=== PATIENT | female | born 1960 | race African-American/Black ===

== ENCOUNTER 2020-09-11 10:45 | Day surgery (SDC) | payer OTHER ==
[2020-09-05 14:45] VITALS: BMI 40.3
[2020-09-11] MEDS ORDERED: PROPOFOL 20 ML ONE ×7 (11:37→12:22)
[2020-09-11] MEDS ORDERED: LIDOCAINE HCL/PF 2% SDV 5ML VIAL ONE (11:38)
[2020-09-11 12:55] VITALS: TEMP 98.2
[2020-09-11 13:29] VITALS: BP 146/74; PULSE 78
== END 2020-09-11 13:30 | disposition home or self-care (01) ==
LOC: FASU-ENDO 10:45
PROVIDERS: ATTEND Internal Medicine Gastroenterology
PROC: 0DBH8ZX Excision of Cecum, Via Natural or Artificial Opening Endoscopic, Diagnostic (ICD-10-PCS; principal; 2020-09-11 11:56)
DX: Z12.11 Encounter for screening for malignant neoplasm of colon (principal); D12.0 Benign neoplasm of cecum; K64.1 Second degree hemorrhoids; K63.5 Polyp of colon
CPT/HCPCS: 88305-TC

== ENCOUNTER 2020-10-11 14:38 | Emergency (ER) | payer OTHER ==
[2020-10-11] MEDS ORDERED: KETOROLAC TROMETHAMINE 15 MG/ML VIAL IM ONE (14:57)
[2020-10-11] MEDS ORDERED: KETOROLAC TROMETHAMINE 15 MG/ML VIAL ONE (15:02)
[2020-10-11 15:41] VITALS: BP 137/88; PULSE 78; TEMP 99; BMI 39.5
== END 2020-10-11 16:04 | disposition home or self-care (01) ==
LOC: FER 14:38
PROC: 3E0233Z Introduction of Anti-inflammatory into Muscle, Percutaneous Approach (ICD-10-PCS; principal; 2020-10-11)
DX: L84 Corns and callosities (principal); M79.672 Pain in left foot
CPT/HCPCS: 73630-TC-LT; 99284-25

== ENCOUNTER 2024-02-04 15:44 | Emergency (ER) | payer OTHER ==
[2024-02-04 15:56] VITALS: BP 120/70; PULSE 70; RESP 18; TEMP 97.9; BMI 34.7
[2024-02-04] MEDS ORDERED: morphine SULFATE 4 MG/ML VIAL ONE (16:48)
[2024-02-04] MEDS: morphine CARPU-JECT 4 MG/1 ML DISP.SYRIN IM ONE (16:54)
== END 2024-02-04 17:14 | disposition home or self-care (01) ==
LOC: JERFT 15:44
PROC: 3E023NZ Introduction of Analgesics, Hypnotics, Sedatives into Muscle, Percutaneous Approach (ICD-10-PCS; principal; 2024-02-04)
DX: S83.8X2A Sprain of other specified parts of left knee, initial encounter (principal); M22.2X2 Patellofemoral disorders, left knee; X50.9XXA Other and unspecified overexertion or strenuous movements or postures, initial encounter
CPT/HCPCS: 73562-TC-LT-FY; 96372; 99284-25